=== PATIENT | female | born 1990 | race Caucasian/White ===

== ENCOUNTER 2020-10-07 17:42 | Emergency (ER) | payer MEDICAID ==
[2020-10-07 17:48] VITALS: BP 117/64
[2020-10-07] MEDS ORDERED: ACETAMINOPHEN 325 MG TABLET PO ONE (19:35)
--- NOTE | 2020-10-07 19:35 | ER Document Report ---
ED Medical Screen (RME) - General Chief Complaint: Low Back Pain Stated Complaint: LOW BACK PAIN/14 WKS PREG Time Seen by Provider: 10/07/20 19:28 Mode of Arrival: Ambulatory Information source: Patient Notes: 30-year-old female presented to ED for complaint of back pain.. She is 14 weeks and is high risk . She does not have any vaginal bleeding at this time. She has had 3 miscarriages in the past about this time. 5 para 1. I have ordered blood urine and ultrasound and she will be seen by another provider. She also requested Tylenol. I have greeted and performed a rapid initial assessment of this patient. A comprehensive ED assessment and evaluation of the patient, analysis of test results and completion of medical decision making process will be conducted by an additional ED providers. Physical Exam - Vital signs Vitals: Temp Pulse Resp BP Pulse Ox 98.2 F 81 20 117/64 98 10/07/20 17:48 10/07/20 17:48 10/07/20 17:48 10/07/20 17:48 10/07/20 17:48 Course - Vital Signs Vital signs: Temp Pulse Resp BP Pulse Ox 98.2 F 81 20 117/64 98 10/07/20 17:48 10/07/20 17:48 10/07/20 17:48 10/07/20 17:48 10/07/20 17:48
[2020-10-07 20:22] LABS: ABSOLUTE BASOPHILS # (AUTO) 0.1 10^3/uL (0.0-0.2); ABSOLUTE EOSINOPHILS # (AUTO) 0.1 10^3/uL (0.0-0.6); ABSOLUTE LYMPHOCYTES (AUTO) 2.8 10^3/uL (0.5-4.7); ABSOLUTE MONOCYTES (AUTO) 0.6 10^3/uL (0.1-1.4); ABSOLUTE NEUT (AUTO) 6.4 10^3/uL (1.7-8.2); BASOPHILS % (AUTO) 0.6 % (0-2); HEMOGLOBIN 13.2 g/dL (12.0-15.5); LYMPHOCYTES % (AUTO) 28.3 % (13-45); MEAN CORPUSCULAR HEMOGLOBIN 30.1 pg (27.0-33.4); MEAN CORPUSCULAR HGB CONC 35.7 g/dL (32.0-36.0); MEAN CORPUSCULAR VOLUME 84 fl (80-97); MONOCYTES % (AUTO) 5.9 % (3-13); PLATELET COUNT 290 10^3/uL (150-450); RED BLOOD COUNT 4.39 10^6/uL (3.72-5.28); RED CELL DISTRIBUTION WIDTH 12.8 % (11.5-14.0); SEGMENTED NEUTROPHILS % (AUTO) 64.2 % (42-78); TOTAL CELLS COUNTED % (AUTO) 100 %
--- NOTE | 2020-10-07 20:26 | RADIOLOGY REPORT (SQ) ---
EXAM DESCRIPTION: U/S OB 14+ TRNABD 1GES W/O DOP RadLex: US FOLLOW UP CLINICAL HISTORY: 30 years Female; 14 weeks high risk; LMP 07/02/2020 (13 weeks 6 days) TECHNIQUE: Transabdominal pelvic ultrasound was performed. COMPARISON: None. FINDINGS: Uterus: Single intrauterine gestational sac. Single pole, CRL 7.42 cm, 13 weeks 4 days heart rate 158 BPM Fluid: Adequate, LBP 6 x 4.8 cm No hematoma. Cervix: 3.4 cm, closed Ovaries not visualized. IMPRESSION: 1. Single viable IUP, EGA 13 weeks 4 days, EDC 04/10/2021 2. No acute findings
[2020-10-07 20:28] LABS: APPEARANCE,URINE SLIGHTLY-CLOUDY; BILIRUBIN,URINE NEGATIVE (NEGATIVE); COLOR,URINE YELLOW; GLUCOSE, URINE NEGATIVE (NEGATIVE); KETONES,URINE NEGATIVE (NEGATIVE); LEUKOCYTE ESTERASE,URINE TRACE (NEGATIVE); NITRITE,URINE NEGATIVE (NEGATIVE); PROTEIN,URINE NEGATIVE (NEGATIVE); URINE SPECIFIC GRAVITY 1.025
[2020-10-07 20:34] LABS: ALBUMIN 4.1 g/dL (3.5-5.0); ALKALINE PHOSPHATASE 66 U/L (38-126); ANION GAP 9 (5-19); ASPARTATE AMINO TRANSFERASE 22 U/L (14-36); BILIRUBIN,TOTAL 0.5 mg/dL (0.2-1.3); BLOOD UREA NITROGEN 9 mg/dL (7-20); CARBON DIOXIDE 25 mmol/L (22-30); CHLORIDE 102 mmol/L (98-107); GLUCOSE 92 mg/dL (75-110); POTASSIUM 3.8 mmol/L (3.6-5.0); TOTAL PROTEIN 7.1 g/dL (6.3-8.2)
== END 2020-10-07 23:18 | disposition left against medical advice (07) ==
LOC: ER 17:42
DX: O26.92 Pregnancy related conditions, unspecified, second trimester (principal); M54.5 Low back pain; Z3A.14 14 weeks gestation of pregnancy
CPT/HCPCS: 99281; 36415; 87086; 85025; 80053; 81001; 76805; J3490